=== PATIENT | male | born 2000 | race Caucasian/White ===

== ENCOUNTER → 2018-05-19 22:25 | Outpatient (CLI) | payer OTHER, SELFPAY ==
[2018-05-19 22:38] LABS: Absolute Lymphocyte Count 2.94 X10^3/ul (0.83-4.51); Absolute Neutrophil Count 4.2 X10^3/uL (2.0-7.7); Basophil# 0.07 X10^3/uL; Basophil% 0.8 % (0-1); Eosinophil# 0.55 X10^3/uL; Eosinophils% 6.5 % (0-5); Hematocrit 44.8 % (40-54); Hemoglobin 15.1 g/dl (13.0-16.5); Lymphocyte # 2.94 X10^3/ul (4.0); Lymphocyte % 34.8 % (19-41); Mean Corp Hgb Conc 33.7 g/gl (32-36); Mean Corpuscular Volume 88.9 fL (80-94); Mean Platelet Vol. 9.6 fl (6.2-12.0); Monocyte# 0.71 X10^3/uL; Monocyte% 8.4 % (0-10); Neutrophil # 4.16 X10^3/uL (2.7-7.7); Neutrophil % 49.4 % (47-70); POSITIVE COUNT NO; POSITIVE DIFFERENTIAL NO; POSITIVE MORPHOLOGY NO; Platelet Count 272 K/mm3 (150-450); RBC Distribution Width CV 12.4 % (11.6-14.6); RBC Distribution Width SD 39.7 fl (35.1-43.9); Red Blood Count 5.04 M/mm3 (4.6-6.2); White Blood Count 8.4 K/mm3 (4.4-11.0)
[2018-05-19 22:46] LABS: ALB/GLOB Ratio 1.3 RATIO (0.9-2.4); AST(SGOT) 20 U/L (15-37); Alanine Aminotransfer ALT/SGPT 21 U/L (16-61); Albumin, Serum 4.4 g/dL (3.2-5.0); Alkaline Phosphatase 89 U/L (45-117); Anion Gap 5 (5-15); BUN 12 mg/dL (7-18); BUN/Creat Ratio 13.7 RATIO (10-20); Calcium,Total 9.2 mg/dL (8.5-10.1); Chloride 102 mmol/L (98-107); Cholesterol 111 mg/dL (200); Creatinine, Serum 0.87 mg/dL (0.70-1.30); EST Glomerular Filtration Rate 118 mL/min (>60); Est Glom Filt Rate - Afr Amer 143 mL/min (>60); Globulin 3.3 g/dL (2.2-4.2); Glucose 81 mg/dL (74-106); High Density Lipoprotein 42 mg/dL; Potassium 3.9 mmol/L (3.5-5.1); Protein, Total 7.7 g/dL (6.4-8.2); Sodium Level 138 mmol/L (136-145); Triglycerides 96 mg/dL; Very Low Density Lipoprotein 19 mg/dL (5-40)
== END ==
PROVIDERS: Referring Provider Nurse Practitioner; Visit Provider Nurse Practitioner
DX: Z00.00 Encounter for general adult medical examination without abnormal findings (principal)
CPT/HCPCS: 80053; 80061; 85025

== ENCOUNTER → 2021-07-27 | Outpatient (CLI) | payer OTHER, SELFPAY ==
[2021-07-27 23:03] LABS: ALB/GLOB Ratio 1.2 RATIO (0.9-2.4); AST(SGOT) 27 U/L (15-37); Alanine Aminotransfer ALT/SGPT 39 U/L (16-61); Albumin, Serum 4.2 g/dL (3.2-5.0); Alkaline Phosphatase 78 U/L (45-117); BUN 23 mg/dL (7-18); BUN/Creat Ratio 20.9 RATIO (10-20); Calcium,Total 9.3 mg/dL (8.5-10.1); Chloride 107 mmol/L (98-107); Cholesterol 146 mg/dL (200); EST Glomerular Filtration Rate 88 mL/min (>60); Est Glom Filt Rate - Afr Amer 106 mL/min (>60); Globulin 3.5 g/dL (2.2-4.2); Glucose 90 mg/dL (74-106); Potassium 3.9 mmol/L (3.5-5.1); Protein, Total 7.7 g/dL (6.4-8.2); Sodium Level 141 mmol/L (136-145); Triglycerides 101 mg/dL
[2021-07-27 23:04] LABS: Anion Gap 6 (5-15); High Density Lipoprotein 48 mg/dL; Very Low Density Lipoprotein 20 mg/dL (5-40)
[2021-07-27 23:32] LABS: Absolute Lymphocyte Count 2.94 X10^3/uL (0.83-4.51); Basophil# 0.05 X10^3/uL; Basophil% 0.4 % (0-1); Eosinophil# 0.25 X10^3/uL; Eosinophils% 2.1 % (0-5); Hematocrit 41.7 % (40-54); Hemoglobin 14.3 g/dL (13.0-16.5); Lymphocyte # 2.94 X10^3/ul (0.83-4.51); Lymphocyte % 24.6 % (19-41); Mean Corp Hgb Conc 34.3 g/dL (32-36); Mean Corpuscular Hgb 30.3 pg (27.0-32.0); Mean Corpuscular Volume 88.3 fL (80-94); Mean Platelet Vol. 9.3 fl (6.2-12.0); Monocyte# 0.62 X10^3/uL; Monocyte% 5.2 % (0-10); NRBC Flagged by Analyzer 0 % (0-5); Neutrophil % 66.8 % (47-70); Platelet Count 294 K/mm3 (150-450); RBC Distribution Width SD 39.3 fl (35.1-43.9); Red Blood Count 4.72 M/mm3 (4.6-6.2)
== END | disposition home or self-care (01) ==
PROVIDERS: Referring Provider Nurse Practitioner; Visit Provider Nurse Practitioner
DX: Z00.00 Encounter for general adult medical examination without abnormal findings (principal)
CPT/HCPCS: 80053; 80061; 85025